=== PATIENT | female | born 1975 | race African-American/Black ===

== ENCOUNTER 2022-01-15 02:19 | Emergency (ER) | payer MEDICAID ==
[~2022-01-15] VITALS: Ht 165.1 cm; Wt 58.1 kg
[2022-01-15 02:38] VITALS: BP_SYST 187
[2022-01-15] MEDS ORDERED: cloNIDine HCL 0.1 MG TABLET PO ONE ×2 (03:00→03:45)
[2022-01-15] MEDS ORDERED: CLON0.1T PO (03:15)
[2022-01-15] MEDS ORDERED: ONDANSETRON 4 MG ODT TAB PO ONE (03:45)
[2022-01-15] MEDS ORDERED: cloNIDine HCL 0.1 MG TABLET ONE (03:54)
[2022-01-15] MEDS ORDERED: ONDA-8 TL (04:50)
[2022-01-15 04:52] VITALS: BP_SYST 120
== END 2022-01-15 04:52 | disposition home or self-care (01) ==
LOC: SED 02:19
DX: I10 Essential (primary) hypertension (principal); Z88.2 Allergy status to sulfonamides; Z79.899 Other long term (current) drug therapy
CPT/HCPCS: 99285; Q0162; 99284

== ENCOUNTER 2022-05-09 23:45 | Emergency (ER) | payer MEDICAID ==
[~2022-05-09] VITALS: Ht 165.1 cm; Wt 59.0 kg
[~2022-05-09 23:45] MED LIST: CLON0.1T PO; ONDA-8 TL
[2022-05-10] VITALS: BP_SYST 180
[2022-05-10] MEDS ORDERED: ONDANSETRON HCL 4 MG/2 ML VIAL IVP ONE (00:30)
[2022-05-10] MEDS ORDERED: NACL 0.9% 1,000 ML IV ONE (00:30)
[2022-05-10 01:04] LABS: BASOPHILS # (AUTO) 0.1 K/uL (0.0-0.2); BASOPHILS % (AUTO) 0.8 % (0.0-2.0); EOSINOPHILS # (AUTO) 0.1 K/uL (0.0-0.4); EOSINOPHILS % (AUTO) 1.9 % (0.0-4.0); HEMATOCRIT 24.8 % (36-48); HEMOGLOBIN 7.9 g/dL (12.0-16.0); LYMPHOCYTES # (AUTO) 2.6 K/uL (1.0-5.5); LYMPHOCYTES % (AUTO) 35.9 % (20.5-51.5); MEAN CORPUSCULAR HEMOGLOBIN 24 pg (27-31); MEAN CORPUSCULAR HGB CONC 32 % (32-36); MEAN CORPUSCULAR VOLUME 76 fL (79.0-98.0); MONOCYTES # (AUTO) 0.7 K/uL (0.0-1.0); MONOCYTES % (AUTO) 10.2 % (1.7-9.3); NEUTROPHILS # (AUTO) 3.8 K/uL (1.8-7.7); NEUTROPHILS % (AUTO) 51.2 % (40.0-70.0); PLATELET COUNT (AUTO) 349 K/uL (130-430); RED BLOOD CELL COUNT(AUTO) 3.28 MIL/uL (4.2-6.2); RED CELL DISTRIBUTION WIDTH 18.1 % (9.0-15.0); WHITE BLOOD COUNT (AUTO) 7.3 K/uL (4.8-10.8)
[2022-05-10] MEDS ORDERED: FAMOTIDINE PF 20 MG/2 ML VIAL IVP ONE (01:15)
[2022-05-10] MEDS ORDERED: MORPHINE 4 MG INJ. 4 MG/ML VIAL IVP ONE (01:15)
[2022-05-10] MEDS ORDERED: DIPHENHYDRAMINE INJ 50 MG/ML VIAL IVP ONE (02:45)
[2022-05-10 03:47] LABS: ALBUMIN 3.9 g/dL (3.4-4.8); CALCIUM 9.3 mg/dL (8.4-11.0); CREATININE 1.08 mg/dL (0.55-1.30); TOTAL BILIRUBIN 0.3 mg/dL (0.0-1.0)
[2022-05-10 03:55] LABS: POTASSIUM 3.3 mmol/L (3.5-5.1)
[2022-05-10] MEDS ORDERED: POTASSIUM CHLORIDE 20 MEQ TAB.PRT.SR PO ONE (05:00)
[2022-05-10] MEDS ORDERED: SIMETHICONE 80 MG TAB.CHEW PO ONE (05:15)
[2022-05-10] MEDS ORDERED: SIME80TA15 PO (05:17)
[2022-05-10] MEDS ORDERED: FAMO-132 PO (05:17)
[2022-05-10 05:50] VITALS: BP_SYST 136
== END 2022-05-10 05:50 | disposition home or self-care (01) ==
LOC: SED 23:45
DX: R10.13 Epigastric pain (principal); R11.0 Nausea; Z88.2 Allergy status to sulfonamides; Z79.899 Other long term (current) drug therapy
CPT/HCPCS: 99284; 80053; 84702; 83690; 85025; 36415; 96374; 96375; 96361; J1200; J3490; J2405; J2270; J7030